=== PATIENT | female | born 1955 | race Caucasian/White ===

== ENCOUNTER 2017-05-22 13:29 | Emergency (ER) | payer OTHER ==
[2017-05-22 14:28] VITALS: BP 141/92
--- NOTE | 2017-05-22 14:49 | UC ---
Abdominal Pain Female HPI - HPI Summary HPI Summary: C/O epigastric abdominal pain with nausea. No SOB. Episodes last a few minutes at a time. Had been worse in the morning. Was c/o a-fib as pulse was elevated with BP check. - History of Current Complaint Chief Complaint: UCAbdominalPain Stated Complaint: UPSET STOMACH Time Seen by Provider: 05/22/17 14:42 Hx Obtained From: Patient Hx Last Menstrual Period: n/a Onset/Duration: Gradual Onset, Lasting Weeks - 2, Worse Since - this morning. Timing: Intermittent Episodes Lasting: - several minutes Severity Initially: Mild Severity Currently: Moderate Location: Epigastric Radiates: No Character: Sharp Aggravating Factor(s): Nothing Alleviating Factor(s): Nothing, Spontaneous Resolution Associated Signs and Symptoms: Positive: Cough - chronic, Dizzy, Nausea. Negative: Diaphoresis, Fever, Chest Pain, Vomiting, Diarrhea Allergies/Adverse Reactions: Allergies Allergy/AdvReac Type Severity Reaction Status Date / Time Bupropion [From Wellbutrin] Allergy Unknown CONFUSION Verified 05/22/17 14:06 Paroxetine [From Paxil] Allergy Unknown TREMORS Verified 05/22/17 14:05 Home Medications: Home Medications Cetirizine* [ZyrTEC 10 MG TAB*] 10 mg PO DAILY 05/22/17 [History Confirmed 05/22] Cholecalciferol [D 1000] 1,000 unit PO DAILY 05/22/17 [History Confirmed ] Venlafaxine HCl [Effexor XR-] 37.5 mg PO BID 05/22/17 [History Confirmed ] metFORMIN* [Glucophage 1000 MG TAB *] 1,000 mg PO BID 05/22/17 [History Confirmed 05/22/17] PMH/Surg Hx/FS Hx/Imm Hx Endocrine History: Diabetes, Dyslipidemia Cardiovascular History: Hypertension - Surgical History Surgical History: Yes Surgery Procedure, Year, and Place: right breast , abdominal hernia. LEFT SHOULDER SEPTEMBER 2016 - Family History Known Family History: Positive: Diabetes - Social History Occupation: Retired Lives: Alone Alcohol Use: None Substance Use Type: None Smoking Status (MU): Heavy Every Day Tobacco Smoker Type: Cigarettes Amount Used/How Often: 1/2-3/4 PPD Have You Smoked in the Last Year: Yes Household Exposure Type: Cigarettes Cessation Counseling: Counseled 3+Min - 10 Min Review of Systems Respiratory: Cough Gastrointestinal: Abdominal Pain Musculoskeletal: Arthralgia - left shoulder Is Patient Immunocompromised?: No All Other Systems Reviewed And Are Negative: Yes Physical Exam Triage Information Reviewed: Yes Appearance: Well-Appearing, No Pain Distress, Well-Nourished Vital Signs: Initial Vital Signs Temp 98.2 F 05/22/17 14:11 Pulse 82 05/22/17 14:11 Resp 20 05/22/17 14:11 BP 141/92 05/22/17 14:11 Pulse Ox 82 05/22/17 14:11 Vital Signs Reviewed: Yes Eyes: Positive: Conjunctiva Clear ENT: Positive: Pharynx normal, TMs normal Neck exam: Normal Respiratory Exam: Normal Cardiovascular Exam: Normal Abdomen Description: Negative: Nontender - Tender epigastric and LLQ, No Organomegaly, Peritoneal Signs Bowel Sounds: Positive: Present Musculoskeletal: Positive: Strength Intact, ROM Intact, Other: - Positive impingement sign left shoulder Neurological Exam: Normal Psychological Exam: Normal Skin: Positive: rashes - hypertrophic patches on the upper shoulders bilaterally , left > right Abd Pain Female Course/Dx - Differential Dx/Diagnosis Differential Diagnosis: ACS, Gall Bladder Disease, Pancreatitis, Peptic Ulcer Disease Provider Diagnoses: Epigastric abdominal pain. Lichen Planus. Smoking Discharge - Discharge Plan Condition: Stable Disposition: HOME Prescriptions: Betamethasone Dip 0.05% ON(NF) [Betamethasone Dipr 0.05% OINT(NF)] 1 applic TOPICAL BID #50 gm Famotidine TAB* [Pepcid 20 MG TAB*] 20 mg PO BID #60 tab Patient Education Materials: Abdominal Pain (ED), Gastritis (ED), Famotidine ( By mouth) Referrals: CHINEDU Au [Primary Care Provider] - 4 Days (Follow up on pain. If you get exertional pain, go to the ER.) Additional Instructions: Smoking Cessation Tricks. 1. Cut down by 1 cigarette per day every 2-3 days. Write the number of smokes for that day on the calendar. 2. Identify triggers to smoking: after meals, on the phone, in the car, with coffee, on breaks at work, etc. 3. Formulate a plan with a behavior to replace the smoking. Fireballs in the car , doodle pad on the phone, flavored creamer for the coffee, go for a walk after a meal or on break at work. 4. For stress smokes do deep breathing relaxation. Breath deep in through the nose hold the breath in for a few seconds then breath out slowly through the mouth.
== END 2017-05-22 15:18 | disposition home or self-care (01) ==
LOC: UCCORT 13:29
DX: R10.13 Epigastric pain (principal); L43.9 Lichen planus, unspecified; F17.210 Nicotine dependence, cigarettes, uncomplicated; E11.8 Type 2 diabetes mellitus with unspecified complications; E78.5 Hyperlipidemia, unspecified
CPT/HCPCS: 93005; 99212; G0463

== ENCOUNTER 2018-04-28 10:23 | Emergency (ER) | payer OTHER ==
[2018-04-28 12:12] VITALS: BP 141/87
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
== END 2018-04-28 13:43 | disposition short-term general hospital (02) ==
LOC: UCCORT 10:23
DX: M25.519 Pain in unspecified shoulder (principal); R05 Cough; R06.7 Sneezing; E11.9 Type 2 diabetes mellitus without complications; J44.9 Chronic obstructive pulmonary disease, unspecified; I10 Essential (primary) hypertension; F17.210 Nicotine dependence, cigarettes, uncomplicated; R07.9 Chest pain, unspecified; Z88.8 Allergy status to other drugs, medicaments and biological substances
CPT/HCPCS: 71046; 93005; 99212; G0463